=== PATIENT | male | born 1945 | race Caucasian/White ===

== ENCOUNTER 2017-07-22 18:53 | Emergency (ER) | payer MEDICARE ==
[~2017-07-22] VITALS: Ht 172.7 cm; Wt 149.7 kg
[2017-07-22 18:55] VITALS: BP_SYST 160
[2017-07-22] MEDS ORDERED: ALBUTEROL SULFATE 0.083% 2.5 MG/3 ML VIAL.NEB INH SCH (19:00)
[2017-07-22] MEDS ORDERED: LEVOFLOXACIN 500 MG/D5W 100 ML IV ONE (19:00)
[2017-07-22] MEDS ORDERED: ALBUTEROL SULFATE 0.083% 2.5 MG/3 ML VIAL.NEB INH ONE ×3 (19:00→20:45)
[2017-07-22] MEDS ORDERED: FUROSEMIDE 40 MG/4 ML VIAL IVP ONE (19:30)
[2017-07-22 19:35] LABS: BASOPHILS # (AUTO) 0.2 K/uL (0.0-0.2); BASOPHILS % (AUTO) 1.8 % (0.0-2.0); EOSINOPHILS # (AUTO) 0.5 K/uL (0.0-0.4); EOSINOPHILS % (AUTO) 5.4 % (0.0-4.0); HEMOGLOBIN 12.1 g/dL (14.0-18.0); LYMPHOCYTES # (AUTO) 2.1 K/uL (1.0-5.5); LYMPHOCYTES % (AUTO) 25.1 % (20.5-51.5); MEAN CORPUSCULAR HEMOGLOBIN 29 pg (27-31); MEAN CORPUSCULAR HGB CONC 34 % (32-36); MEAN CORPUSCULAR VOLUME 86 fL (79.0-98.0); MONOCYTES # (AUTO) 0.7 K/uL (0.0-1.0); MONOCYTES % (AUTO) 8.9 % (1.7-9.3); NEUTROPHILS # (AUTO) 4.9 K/uL (1.8-7.7); NEUTROPHILS % (AUTO) 58.8 % (40.0-70.0); PLATELET COUNT (AUTO) 267 K/uL (130-430); RED CELL DISTRIBUTION WIDTH 13.8 % (9.0-15.0); WHITE BLOOD COUNT (AUTO) 8.4 K/uL (4.8-10.8)
[2017-07-22 20:09] LABS: PROTHROMBIN TIME 10.3 SECS (9.5-12.5)
[2017-07-22] MEDS ORDERED: MOME13HF2 INH (20:10)
[2017-07-22] MEDS ORDERED: VITA400C19 PO (20:10)
[2017-07-22] MEDS ORDERED: FURO80TA86 PO (20:10)
[2017-07-22] MEDS ORDERED: POTA10TA80 PO (20:10)
[2017-07-22] MEDS ORDERED: VITD2000 PO (20:10)
[2017-07-22] MEDS ORDERED: LISI-209 PO (20:10)
[2017-07-22] MEDS ORDERED: ASCO500T20 PO (20:10)
[2017-07-22] MEDS ORDERED: VIT1CAPS32 PO (20:10)
[2017-07-22] MEDS ORDERED: NPH,100V SUBCUT (20:10)
[2017-07-22] MEDS ORDERED: SIMV10TA2 PO (20:10)
[2017-07-22] MEDS ORDERED: CEL20 PO (20:10)
[2017-07-22] MEDS ORDERED: CLOP75TA2 PO (20:10)
[2017-07-22 20:11] LABS: CREATININE 1.27 mg/dL (0.55-1.30); POTASSIUM 3.8 mmol/L (3.5-5.1)
[2017-07-22 20:15] LABS: ALBUMIN 3.3 g/dL (3.4-4.8); TOTAL BILIRUBIN 0.4 mg/dL (0.0-1.0)
[2017-07-22 20:36] LABS: BILIRUBIN,URINE NEGATIVE (NEGATIVE); BLOOD, URINE NEGATIVE (NEGATIVE); CLARITY/URINE CLEAR (CLEAR); COLOR,URINE YELLOW (YELLOW); GLUCOSE,URINE NEGATIVE (NEGATIVE); KETONES,URINE NEGATIVE (NEGATIVE); LEUKOCYTE ESTERASE ,URINE NEGATIVE (NEGATIVE); NITRITE, URINE NEGATIVE (NEGATIVE); PROTEIN URINE NEGATIVE (NEGATIVE); UROBILINOGEN,URINE 0.2 (0.2-1.0)
[2017-07-22] MEDS ORDERED: methylPREDNISolone SOD SUCC/PF 62.5 MG/ML VIAL IVP ONE (21:15)
[2017-07-22 23:30] VITALS: BP_SYST 129
== END 2017-07-22 23:30 | disposition short-term general hospital (02) ==
LOC: SED 18:53
DX: I11.0 Hypertensive heart disease with heart failure (principal); I50.9 Heart failure, unspecified; J44.1 Chronic obstructive pulmonary disease with (acute) exacerbation; J40 Bronchitis, not specified as acute or chronic; E11.9 Type 2 diabetes mellitus without complications; E78.5 Hyperlipidemia, unspecified; Z88.6 Allergy status to analgesic agent; Z79.899 Other long term (current) drug therapy; Z93.0 Tracheostomy status
CPT/HCPCS: 36415; 36600; 71010; 80053; 81003; 82803; 83605; 83880; 84484; 85025; 85610; 87040; 93005; 94640; 96365; 96375; 99291; J1940; J1956; J2930